=== PATIENT | male | born 1985 | race Hispanic/Latino ===

== ENCOUNTER 2022-09-28 02:43 | Emergency (ER) | payer OTHER ==
[~2022-09-28] VITALS: Ht 175.3 cm; Wt 6.2 kg
[2022-09-28 02:47] VITALS: BP 126/89
[2022-09-28] MEDS ORDERED: IBUPROFEN 800 MG TAB PO ONE (03:30)
[2022-09-28] MEDS ORDERED: PREDNISONE 20 MG TABLET PO ONE (03:30)
[2022-09-28] MEDS ORDERED: PRED20TA3 PO (04:21)
[2022-09-28] MEDS ORDERED: IBUP-1493 PO (04:21)
== END 2022-09-28 05:04 | disposition home or self-care (01) ==
LOC: EDH 02:43
DX: S56.414A Strain of extensor muscle, fascia and tendon of left middle finger at forearm level, initial encounter (principal); M70.61 Trochanteric bursitis, right hip; M54.16 Radiculopathy, lumbar region; R20.2 Paresthesia of skin; Z90.49 Acquired absence of other specified parts of digestive tract; X58.XXXA Exposure to other specified factors, initial encounter; Y93.89 Activity, other specified; Y92.89 Other specified places as the place of occurrence of the external cause; Y99.8 Other external cause status
CPT/HCPCS: 73140